=== PATIENT | male | born 1960 ===

== ENCOUNTER → 2018-02-08 | Outpatient (CLI) | payer BC | END | disposition home or self-care (01) | LOC: LAB SHORT 07:50 → PLD 07:50 | DX: L57.0 Actinic keratosis (principal) | CPT/HCPCS: 88305; 88312 ==

== ENCOUNTER 2021-01-03 07:18 | Day surgery (SDC) | payer OTHER ==
[~2021-01-03] VITALS: Ht 188 cm; Wt 90.9 kg
[~2021-01-03 07:18] MED LIST: Aspir 8181 MG PO; CENTRUM SILVER1 EAC2 PO; ERGO400 PO; OMEP20ER PO
== END 2021-01-03 09:24 | disposition home or self-care (01) ==
LOC: ORSCSDS 07:18
PROVIDERS: Surgery
PROC: 0DBL8ZX Excision of Transverse Colon, Via Natural or Artificial Opening Endoscopic, Diagnostic (ICD-10-PCS; principal; 2021-01-03 08:30)
DX: Z12.11 Encounter for screening for malignant neoplasm of colon (principal); Z80.0 Family history of malignant neoplasm of digestive organs; D12.3 Benign neoplasm of transverse colon; Z86.010 Personal history of colon polyps; Z79.82 Long term (current) use of aspirin; Z79.899 Other long term (current) drug therapy
CPT/HCPCS: 88305; J2704; J7120